=== PATIENT | male | born 1980 | race Caucasian/White ===

== ENCOUNTER 2016-08-03 20:29 | Emergency (ER) | payer OTHER ==
[~2016-08-03] VITALS: Ht 182.9 cm; Wt 96.0 kg
[~2016-08-03 20:29] MED LIST: BACTRIM,SEPT1 TABLET PO; INDOCIN25 MG PO; NOHOMEMEDS; NORCO 7.5/321 TABLET PO; VALIUM5 MG PO; no home meds
[2016-08-03 21:22] LABS: MCH 29.8 PG (29.0-34.0); MCV 87.5 FL (86-99); MEAN PLAT.VOLUME 10.6 uM^3 (9.0-12.4); PLATELET COUNT 217 K/uL (156-360); RBC DIS.WIDTH-CV 11.9 % (11.8-14.6); RBC DIS.WIDTH-SD 38.2 % (39-53); WHITE BLOOD COUNT 6.1 K/uL (4.1-10.2)
[2016-08-03 21:31] LABS: CHLORIDE 109 mEq/L (99-109); SODIUM 142 mEq/L (136-147)
[2016-08-03 21:33] LABS: GLUCOSE 93 mg/dL (70-99)
[2016-08-03 21:34] LABS: ANION GAP 9 MEQ/L (2-14)
[2016-08-03 21:35] LABS: TOTAL BILIRUBIN 0.3 mg/dL (0.0-1.0)
[2016-08-03 21:36] LABS: ALKALINE PHOSPHATASE 64 IU/L (3-129)
[2016-08-03 21:37] LABS: GFR ESTIMATE (CALCULATED) > 59 mL/min/
[2016-08-03 21:38] LABS: UREA NITROGEN (BUN) 19 mg/dL (9-23)
[2016-08-03 21:56] LABS: ADD MIUA? NO; BILIRUBIN NEGATIVE; BLOOD NEGATIVE; COLOR YELLOW ((YELLOW)); GLUCOSE (STRIP) NEGATIVE; KETONES NEGATIVE; LEUKOCYTES NEGATIVE; NITRITE NEGATIVE; PROTEIN (STRIP) NEGATIVE; SPECIFIC GRAVITY 1.018 (1.000-1.030); UCUL ADDED? NO; UROBILINOGEN 0.2 MG/DL (0.2-1.0)
[2016-08-03] MEDS ORDERED: PERCOCET 5/31 TABLET PO (23:22)
[2016-08-03 23:37] VITALS: BP 135/82
== END 2016-08-03 23:38 | disposition home or self-care (01) ==
LOC: EME 20:29
PROVIDERS: Physician Assistant
DX: R10.31 Right lower quadrant pain (principal); R10.9 Unspecified abdominal pain; F17.200 Nicotine dependence, unspecified, uncomplicated
CPT/HCPCS: 74176; 80053; 81003; 85027; 99281; 99284; J1885

== ENCOUNTER 2017-08-22 21:02 | Emergency (ER) | payer OTHER ==
[~2017-08-22] VITALS: Ht 182.9 cm; Wt 96.2 kg
[~2017-08-22 21:02] MED LIST changes: +PERCOCET 5/31 TABLET PO
[2017-08-22] MEDS ORDERED: ULTRACET1 TABLET PO (22:46)
[2017-08-22] MEDS ORDERED: MOTRIN800 MG PO (22:46)
[2017-08-22 23:18] VITALS: BP 147/85
== END 2017-08-22 23:18 | disposition home or self-care (01) ==
LOC: EME 21:02
DX: S93.401A Sprain of unspecified ligament of right ankle, initial encounter (principal); S90.111A Contusion of right great toe without damage to nail, initial encounter; W22.8XXA Striking against or struck by other objects, initial encounter; Y99.0 Civilian activity done for income or pay; F17.200 Nicotine dependence, unspecified, uncomplicated
CPT/HCPCS: 73610; 73660; 99281; 99283

== ENCOUNTER 2017-10-10 19:39 | Emergency (ER) | payer OTHER ==
[~2017-10-10] VITALS: Ht 182.9 cm; Wt 94.6 kg
[~2017-10-10 19:39] MED LIST changes: +MOTRIN800 MG PO; +ULTRACET1 TABLET PO
[2017-10-10 21:05] LABS: HEMATOCRIT 38.3 % (38.0-50.0); HEMOGLOBIN 13.3 G/DL (12.5-16.6); MCH 30.4 PG (29.0-34.0); MCHC 34.7 G/DL (30.0-36.0); MCV 87.6 FL (86-99); PLATELET COUNT 190 K/uL (156-360); RBC DIS.WIDTH-CV 11.9 % (11.8-14.6); RBC DIS.WIDTH-SD 38.1 % (39-53); RED BLOOD COUNT 4.37 M/uL (4.00-5.50); WHITE BLOOD COUNT 7.7 K/uL (4.1-10.2)
[2017-10-10 21:15] LABS: CHLORIDE 105 mEq/L (99-109); POTASSIUM 4.1 mEq/L (3.7-5.4); SODIUM 140 mEq/L (136-147)
[2017-10-10 21:17] LABS: GLUCOSE 104 mg/dL (70-99)
[2017-10-10 21:21] LABS: CREATININE 1.1 mg/dL (0.6-1.3); GFR ESTIMATE (CALCULATED) > 59 mL/min/ (58.99-99999)
[2017-10-10 21:22] LABS: UREA NITROGEN (BUN) 18 mg/dL (9-23)
[2017-10-10] MEDS ORDERED: NORCO 5/3251 TABLET PO (21:30)
[2017-10-10] MEDS ORDERED: CLEOCIN300 MG PO (21:30)
[2017-10-10 21:40] VITALS: BP 147/82
== END 2017-10-10 21:42 | disposition home or self-care (01) ==
LOC: EME 19:39
PROVIDERS: Nurse Practitioner Family
DX: L03.116 Cellulitis of left lower limb (principal); H54.40 Blindness, one eye, unspecified eye; F17.200 Nicotine dependence, unspecified, uncomplicated
CPT/HCPCS: 80048; 85027; 93971; 99281; 99284

== ENCOUNTER 2017-10-15 14:16 | Emergency (ER) | payer OTHER ==
[~2017-10-15] VITALS: Ht 182.9 cm; Wt 93.6 kg
[~2017-10-15 14:16] MED LIST changes: +CLEOCIN300 MG PO; +NORCO 5/3251 TABLET PO
[2017-10-15 14:50] LABS: BASOPHIL (%) 0.4 % (0-1); EOSINOPHIL COUNT 0.1 K/uL (0-0.3); HEMOGLOBIN 14.5 G/DL (12.5-16.6); IMMATURE GRANULOCYTE (%) 0.2 % (0.0-0.7); LYMPHOCYTE (%) 38.4 % (15-42); LYMPHOCYTE COUNT 2.1 K/uL (1.0-2.8); MCHC 34.5 G/DL (30.0-36.0); MONOCYTE (%) 9.2 % (3-12); MONOCYTE COUNT 0.5 K/uL (0-0.8); NEUTROPHIL (%) 49.8 % (45-76); NEUTROPHIL COUNT 2.8 K/uL (1.8-6.4); PLATELET COUNT 192 K/uL (156-360); RBC DIS.WIDTH-CV 11.9 % (11.8-14.6); RBC DIS.WIDTH-SD 38.2 % (39-53); RED BLOOD COUNT 4.83 M/uL (4.00-5.50); WHITE BLOOD COUNT 5.6 K/uL (4.1-10.2)
[2017-10-15 14:57] LABS: CHLORIDE 106 mEq/L (99-109)
[2017-10-15 14:58] LABS: POTASSIUM 4.2 mEq/L (3.7-5.4); SODIUM 141 mEq/L (136-147)
[2017-10-15 14:59] LABS: GLUCOSE 78 mg/dL (70-99)
[2017-10-15 15:03] LABS: GFR ESTIMATE (CALCULATED) > 59 mL/min/ (58.99-99999)
[2017-10-15 15:04] LABS: UREA NITROGEN (BUN) 19 mg/dL (9-23)
[2017-10-15 17:16] LABS: PTT 31.1 SEC (25-37)
[2017-10-15 17:17] LABS: ALBUMIN 4.5 g/dL (3.2-4.8)
[2017-10-15 17:20] LABS: TOTAL PROTEIN 7.3 g/dL (6.4-8.3)
[2017-10-15 17:21] LABS: TOTAL BILIRUBIN 0.7 mg/dL (0.0-1.0)
[2017-10-15 17:23] LABS: ALKALINE PHOSPHATASE 90 IU/L (3-129)
[2017-10-15 17:25] LABS: AST (GOT) 15 IU/L (2-34); DIRECT BILIRUBIN 0.3 mg/dL (0.0-0.3)
[2017-10-15 17:26] LABS: ALT (GPT) 12 IU/L (3-49)
[2017-10-15 17:53] LABS: APPEARANCE CLEAR ((CLEAR)); BILIRUBIN NEGATIVE; BLOOD NEGATIVE; COLOR YELLOW ((YELLOW)); GLUCOSE (STRIP) NEGATIVE; KETONES NEGATIVE; LEUKOCYTES NEGATIVE; NITRITE NEGATIVE; PROTEIN (STRIP) NEGATIVE; SPECIFIC GRAVITY 1.027 (1.000-1.030); UCUL ADDED? NO
[2017-10-15] MEDS ORDERED: PREDNISONE10 M1 PO (19:29)
[2017-10-15] MEDS ORDERED: KEFLEX500 MG PO (19:37)
[2017-10-15] MEDS ORDERED: PERCOCET 5/31 TABLET PO (19:37)
[2017-10-15 19:47] VITALS: BP 140/93
== END 2017-10-15 19:51 | disposition home or self-care (01) ==
LOC: EME 14:16
PROVIDERS: Physician Assistant
DX: R23.3 Spontaneous ecchymoses (principal); M79.662 Pain in left lower leg; H54.62 Unqualified visual loss, left eye, normal vision right eye; F17.200 Nicotine dependence, unspecified, uncomplicated
CPT/HCPCS: 73590; 80048; 80076; 81003; 85025; 85610; 85730; 99281; 99284